=== PATIENT | male | born 1945 | race African-American/Black ===

== ENCOUNTER 2017-07-22 17:49 | Inpatient (IN) | payer OTHER ==
[~2017-07-22] VITALS: Ht 172.7 cm; Wt 73.4 kg
[2017-07-22 18:14] LABS: POINT-OF-CARE METER ID UU14100415; POINT-OF-CARE USER ID NUTJNM
[2017-07-22 19:34] LABS: HEMATOCRIT 36.4 % (38.0-50.0); MCH 29.5 PG (29.0-34.0); MCHC 36.3 G/DL (30.0-36.0); MCV 81.3 FL (86-99); MEAN PLAT.VOLUME 10.3 uM^3 (9.0-12.4); PLATELET COUNT 70 K/uL (156-360); RBC DIS.WIDTH-CV 11.5 % (11.8-14.6); RBC DIS.WIDTH-SD 33.6 % (39-53); RED BLOOD COUNT 4.48 M/uL (4.00-5.50); WHITE BLOOD COUNT 9.3 K/uL (4.1-10.2)
[2017-07-22 19:53] LABS: CHLORIDE 93 mEq/L (99-109); SODIUM 133 mEq/L (136-147)
[2017-07-22 19:55] LABS: GLUCOSE 150 mg/dL (70-99); TROP-I INTERPRETATION NEGATIVE; TROPONIN-I 0.09 ng/mL (0.0-0.30)
[2017-07-22 19:56] LABS: ANION GAP 17 MEQ/L (2-14)
[2017-07-22 20:00] LABS: UREA NITROGEN (BUN) 5 mg/dL (9-23)
[2017-07-22 20:03] LABS: GFR ESTIMATE (CALCULATED) > 59 mL/min/ (58.99-99999)
[2017-07-22 20:36] LABS: SERUM ETHYL ALCOHOL < 10 mg/dL
[2017-07-22 20:40] LABS: ADD MIUA? YES; BILIRUBIN NEGATIVE; BLOOD LARGE; GLUCOSE (STRIP) 50; KETONES 5; LEUKOCYTES NEGATIVE; NITRITE NEGATIVE; PROTEIN (STRIP) 100; SPECIFIC GRAVITY 1.012 (1.000-1.030); UROBILINOGEN 0.2 MG/DL (0.2-1.0)
[2017-07-22 20:41] LABS: COLOR RED ((YELLOW))
[2017-07-22 20:42] LABS: CASTS NONE SEEN /LPF; MUCUS NONE SEEN /LPF
[2017-07-22 20:43] LABS: BACTERIA NONE SEEN /HPF; CRYSTALS NONE SEEN; EPITHELIAL CELLS RARE /HPF; RED BLOOD CELLS TNTC /HPF (0-5); UCUL ADDED? YES; WHITE BLOOD CELLS RARE /HPF (0-5)
[2017-07-22 22:50] LABS: MAGNESIUM 1.3 mg/dL (1.3-2.7)
[2017-07-22 22:51] LABS: PROTHROMBIN TIME 11.8 SEC (10.2-12.9)
[2017-07-22 22:53] LABS: PTT 27.2 SEC (25-37); TOTAL BILIRUBIN 1.1 mg/dL (0.0-1.0)
[2017-07-22 22:54] LABS: ALKALINE PHOSPHATASE 46 IU/L (3-129)
[2017-07-22 22:57] LABS: DIRECT BILIRUBIN 0.5 mg/dL (0.0-0.3)
[2017-07-22 23:54] LABS: HEMATOCRIT 32.7 % (38.0-50.0); MCV 81.1 FL (86-99)
[2017-07-23 04:02] VITALS: BP 142/94
[2017-07-23 06:39] LABS: HEMATOCRIT 37.1 % (38.0-50.0); MCH 29.1 PG (29.0-34.0); MCHC 35.6 G/DL (30.0-36.0); MCV 81.9 FL (86-99); MEAN PLAT.VOLUME 11.9 uM^3 (9.0-12.4); PLATELET COUNT 67 K/uL (156-360); RBC DIS.WIDTH-CV 11.7 % (11.8-14.6); RBC DIS.WIDTH-SD 34.3 % (39-53); RED BLOOD COUNT 4.53 M/uL (4.00-5.50); WHITE BLOOD COUNT 5.4 K/uL (4.1-10.2)
[2017-07-23 06:55] LABS: ANION GAP 12 MEQ/L (2-14); CHLORIDE 99 MEQ/L (99-109); GFR ESTIMATE (CALCULATED) > 59 mL/min/ (58.99-99999); GLUCOSE 130 mg/dL (70-99); SAMPLE HEMOLYSIS CHECK 0; SAMPLE ICTERIC CHECK 0; SAMPLE LIPEMIA CHECK 0; SODIUM 137 MEQ/L (136-147); UREA NITROGEN (BUN) 4 mg/dL (9-23)
[2017-07-23 07:36] LABS: POINT-OF-CARE METER ID UU13113717
[2017-07-23 07:48] LABS: HEMOGLOBIN A1c (GLYCOHEMOGLOB) 4.9 % HGB (Below 5.7)
[2017-07-23 07:52] VITALS: BP 155/101
[2017-07-23 11:52] VITALS: BP 138/78
[2017-07-23 12:23] LABS: POINT-OF-CARE METER ID UU13113717
[2017-07-23 16:04] VITALS: BP 161/77
[2017-07-23 17:21] LABS: POINT-OF-CARE METER ID UU13113717
[2017-07-23 20:29] VITALS: BP 142/69
[2017-07-23 20:50] LABS: POINT-OF-CARE METER ID UU14302514
[2017-07-23 23:38] VITALS: BP 128/69
[2017-07-24 03:46] VITALS: BP 125/81
[2017-07-24 06:38] LABS: HEMATOCRIT 31.8 % (38.0-50.0); MCH 28.8 PG (29.0-34.0); MCHC 34.6 G/DL (30.0-36.0); MCV 83.2 FL (86-99); MEAN PLAT.VOLUME 11.5 uM^3 (9.0-12.4); PLATELET COUNT 60 K/uL (156-360); RBC DIS.WIDTH-CV 11.9 % (11.8-14.6); RBC DIS.WIDTH-SD 35.8 % (39-53); RED BLOOD COUNT 3.82 M/uL (4.00-5.50); WHITE BLOOD COUNT 4.9 K/uL (4.1-10.2)
[2017-07-24 07:14] LABS: ANION GAP 10 MEQ/L (2-14); CHLORIDE 101 MEQ/L (99-109); GFR ESTIMATE (CALCULATED) > 59 mL/min/ (58.99-99999); GLUCOSE 111 mg/dL (70-99); POTASSIUM 3.1 MEQ/L (3.7-5.4); SAMPLE HEMOLYSIS CHECK 0; SAMPLE ICTERIC CHECK 0; SAMPLE LIPEMIA CHECK 0; SODIUM 137 MEQ/L (136-147); UREA NITROGEN (BUN) 5 mg/dL (9-23)
[2017-07-24 07:38] VITALS: BP 152/78
[2017-07-24 16:09] VITALS: BP 153/77
[2017-07-24 17:59] LABS: POINT-OF-CARE METER ID UU13113717
[2017-07-24 19:52] VITALS: BP 84/53
[2017-07-24 23:11] LABS: POINT-OF-CARE METER ID UU14302513
[2017-07-24 23:57] VITALS: BP 96/62
[2017-07-25 03:56] VITALS: BP 132/80
[2017-07-25 06:00] LABS: HEMATOCRIT 28.2 % (38.0-50.0); MCH 29.2 PG (29.0-34.0); MCHC 34.4 G/DL (30.0-36.0); MCV 84.9 FL (86-99); MEAN PLAT.VOLUME 11.5 uM^3 (9.0-12.4); PLATELET COUNT 68 K/uL (156-360); RBC DIS.WIDTH-CV 12.2 % (11.8-14.6); RBC DIS.WIDTH-SD 37.2 % (39-53); RED BLOOD COUNT 3.32 M/uL (4.00-5.50); WHITE BLOOD COUNT 5.8 K/uL (4.1-10.2)
[2017-07-25 06:33] LABS: ANION GAP 8 MEQ/L (2-14); CHLORIDE 101 MEQ/L (99-109); GFR ESTIMATE (CALCULATED) > 59 mL/min/ (58.99-99999); GLUCOSE 119 mg/dL (70-99); MAGNESIUM 1.9 mg/dl (1.3-2.7); POTASSIUM 3.6 MEQ/L (3.7-5.4); SAMPLE HEMOLYSIS CHECK 0; SAMPLE ICTERIC CHECK 0; SAMPLE LIPEMIA CHECK 0; SODIUM 136 MEQ/L (136-147); UREA NITROGEN (BUN) 10 mg/dL (9-23)
[2017-07-25 07:57] VITALS: BP 146/88
[2017-07-25 12:00] VITALS: BP 126/80
[2017-07-25 12:36] LABS: POINT-OF-CARE METER ID UU14302514
[2017-07-25 14:27] LABS: HEMATOCRIT 30.8 % (38.0-50.0); MCV 85.3 FL (86-99)
[2017-07-25 16:00] VITALS: BP 129/81
[2017-07-25 16:48] LABS: POINT-OF-CARE METER ID UU14302513
[2017-07-25 19:33] VITALS: BP 125/73
[2017-07-25 19:52] LABS: HEMATOCRIT 28.8 % (38.0-50.0); MCV 86.2 FL (86-99)
[2017-07-25 20:44] LABS: POINT-OF-CARE METER ID UU14302514
[2017-07-25 23:47] VITALS: BP 147/79
[2017-07-26 03:42] VITALS: BP 139/86
[2017-07-26 07:52] VITALS: BP 152/81
[2017-07-26 08:43] LABS: POINT-OF-CARE METER ID UU14302514
[2017-07-26] MEDS ORDERED: B-1100 MG PO (08:49)
[2017-07-26] MEDS ORDERED: FINASTERIDE5 MG PO (08:49)
[2017-07-26] MEDS ORDERED: THERAGRAN1 TABLET PO (08:49)
[2017-07-26] MEDS ORDERED: TAMSULOSIN HCL0.4 MG PO (08:49)
[2017-07-26] MEDS ORDERED: FOLIC ACID1 MG PO (08:49)
[2017-07-26 11:39] LABS: POINT-OF-CARE METER ID UU14302514
== END 2017-07-26 13:56 | disposition home or self-care (01) | DRG 896 ==
LOC: EME 17:49 → 5SOUTH 21:10 → EDOF 21:10 → ENRESERV 21:11 → 5SOUTH 07-23 00:36 → ENPENDDIS 07-26 → 5SOUTH 07-26 13:56
PROVIDERS: Emergency Medicine; Hospitalist; Nurse Practitioner Adult Health
PROC: HZ2ZZZZ Detoxification Services for Substance Abuse Treatment (ICD-10-PCS; principal; 2017-07-22)
DX: F10.231 Alcohol dependence with withdrawal delirium (principal); E11.10 Type 2 diabetes mellitus with ketoacidosis without coma; C61 Malignant neoplasm of prostate; R31.0 Gross hematuria; N40.0 Benign prostatic hyperplasia without lower urinary tract symptoms; D69.59 Other secondary thrombocytopenia; T51.0X1A Toxic effect of ethanol, accidental (unintentional), initial encounter; E87.2 Acidosis; D62 Acute posthemorrhagic anemia; M41.85 Other forms of scoliosis, thoracolumbar region; E87.6 Hypokalemia; E87.1 Hypo-osmolality and hyponatremia; I10 Essential (primary) hypertension; R94.31 Abnormal electrocardiogram [ECG] [EKG]; N20.0 Calculus of kidney; K64.9 Unspecified hemorrhoids; R59.0 Localized enlarged lymph nodes; Z91.81 History of falling
CPT/HCPCS: 70450; 71010; 72125; 74176; 78306; 80048; 80076; 81003; 82948; 83036; 83605; 83735; 84443; 84484; 85014; 85018; 85027; 85610; 85730; 86850; 86900; 86901; 87040; 87077; 87086; 87186; 87801; 93005; 93306; 95819; 99281; 99285; A9503; G0103; G0480; J0696; J2060; J3370; J3411; J3475; J7030